=== PATIENT | male | born 1990 | race Two or more races ===

== ENCOUNTER 2021-10-29 03:48 | Emergency (ER) | payer MEDICAID, SELFPAY ==
[2021-10-29 04:34] VITALS: BP 115/73; PULSE 73; RESP 18; TEMP 36.7; O2SAT 98; BMI 28.2
[2021-10-29 05:01] LABS: MANUAL DIFF FLAG NO
[2021-10-29 05:03] LABS: Eosinophils Absolute Auto 0.2 X10*3/uL (0.0-0.4); Eosinophils Percent Auto 2.6 % (0-4); Hematocrit 47.1 % (42.0-52.0); Hemoglobin 16.6 g/dl (14.0-18.0); Imm Gran Abs Auto 0.02 X10*3/uL (0.00-0.03); Imm Gran Pct Auto 0.3 % (0.0-0.4); Lymphocytes Absolute Auto 2.1 X10*3/uL (1.2-4.9); Lymphocytes Percent Auto 36.1 % (20-40); Mean Corpuscular HGB Conc 35.2 g/dl (31.0-36.0); Mean Corpuscular Hemoglobin 29.1 pg (27.0-33.0); Mean Corpuscular Volume 82.6 fL (80.0-98.0); Mean Platelet Volume 9.8 fL (9.4-12.4); Monocytes Absolute Auto 0.6 X10*3/uL (0.1-1.2); Monocytes Percent Auto 9.7 % (2-11); Neutrophils Percent Auto 51.3 % (45-73); Platelet Count 242 X10*3/uL (160-400); Red Cell Distribution Width 11.8 % (11.0-16.0); White Blood Count 5.8 X10*3/uL (4.8-10.8)
[2021-10-29 05:17] LABS: COVID-19 Test Negative (Negative); IDNOW Serial# 9DD0AD1C
[2021-10-29 05:20] LABS: Alanine Aminotransferase 30 U/L (0-40); Albumin Level 4.7 g/dL (3.5-5.0); Alkaline Phosphatase 83 U/L (39-117); Anion Gap 13 (12-20); Aspartate Amino Transferase 18 U/L (5-37); Bilirubin Total 0.7 mg/dL (0.0-1.0); Blood Urea Nitrogen 18 mg/dL (9-16); Calcium 9.9 mg/dL (8.4-10.2); Carbon Dioxide 26 mmol/L (22-29); Chloride 104 mmol/L (96-108); Creatinine Clr Calc Pharmacy 106.1; Estimated Glomerular Filt Rate > 60; Glucose Random 97 mg/dL (60-115); Potassium 3.9 mmol/L (3.3-5.1); Sodium 139 mmol/L (135-145); Total Protein 7.9 g/dL (6.5-8.0)
[2021-10-29 05:27] LABS: Amphetamine Screen Urine Not Detected (Not Detect); Barbiturates, Urine Not Detected (Not Detect); Benzodiazepines Screen Urine Not Detected (Not Detect); Cannabinoid Screen Urine Not Detected (Not Detect); Cocaine Screen Urine Not Detected (Not Detect); Fentanyl, urine Not Detected (Not Detect); Opiate Screen Urine Not Detected (Not Detect); Phencyclidine Screen Urine Not Detected (Not Detect)
--- NOTE | 2021-10-29 07:34 | ED.GENADULT ---
HPI - General Adult General Chief complaint: General Medical Stated complaint: insomnia ? psychological Time Seen by Provider: 10/29/21 07:34 Source: patient Mode of arrival: ambulatory Limitations: no limitations History of Present Illness HPI narrative: 31 YO FROM [place] just release 2 Month ago from camp in [place] presented c/o imsomnia,he was given olanzepine,,citalopram,trazodone wich he stopped 2 weeks ago Onset (ago): day(s) Radiation: non-radiation Severity: moderate Quality: burning Pain Consistency: constant Relieving factors: none Exacerbating factors: none Related Data Allergies Allergy/AdvReac Type Severity Reaction Status Date / Time No Known Allergies Allergy Verified 10/29/21 04:32 Review of Systems Review of Systems: Yes all other systems are reviewed and are negative Eyes: Eyes: Reports as per HPI Cardiovascular: Cardiovascular: Reports no additional cardiovascular complaints, Denies painful fingertips, Denies chest pain and Denies chest pain at rest Respiratory: Respiratory: Reports no additional respiratory complaints Gastrointestinal: Gastrointestinal: Reports no additional gastrointestinal complaints Integumentary/Breasts: Skin/Breast: Reports system reviewed and no additional complaints, except as [facility]u [facility] Past Medical History Medical History Anxiety Depression Social History Social History Alcohol intake: never Patient Tobacco Use Status: Never used Tobacco Use of substances other than those prescribed or required for medical reasons: No Advance Directives: No Advance Directives Information Provided: No Physical Exam Vital Signs: Vital Signs: Last Vital Signs Temp 98.0 F 10/29/21 13:11 Pulse 70 10/29/21 13:11 Resp 17 10/29/21 13:11 BP 117/84 10/29/21 13:11 Pulse Ox 99 10/29/21 13:11 BMI result Body Mass Index 28.2 Const: General: cooperative Orientation/consciousness: patient oriented x3 HENMT: Head: Yes normal to inspection Face and sinus: Yes normal facial exam Mouth: Normal oral and palatal mucosa present Throat: Yes posterior oropharynx normal Neck: Neck: Yes normal visual inspection and Yes full ROM Chest: Chest palpation & inspection: normal inspection of the chest Resp: Effort & Inspection: normal respiratory effort Auscultation: clear to auscultation bilaterally Cardio: Jugular venous distension: no JVD Rhythm: regular rhythm GI: Inspection: Yes normal to inspection Palpation (GI): Soft to palpation Percussion: Yes normal to percussion Auscultation: normal bowel sounds : General: Yes no CVA tenderness Back/Spine/Pelvis: Back: no CVA tenderness Neuro: General: patient oriented x3 Course Reevaluation(s) Reevaluation #1: we use the straightener line patient basically has multiple somatic complaints which include the headache back pain he feels weak so we will check his routine blood work and will reassess after,will consult care team because he states that he is anxious and does not sleep at night Reevaluation #2: feeling better labs essentially normal waiting for care team eval Reevaluation #3: patient was seen in consultation by the care team and by the psychiatric Dr Wells, Dr Wells give him 1 dose of Suboxone for presumed opioid withdrawal (the orders were placed by Dr. Wells) . At this point I will discharge the patient he is hemodynamically stable his vital signs are stable, his labs are normal, he is no suicidal no homicidal. Most likely he has PTSD being a refugee from [facility], he has support in the community therefore I think the patient is dischargeable at this time. Medical Decision Making Lab Data Result diagrams: 10/29/21 04:38 10/29/21 04:38 Labs: Lab Results 10/29/21 10/29/21 10/29/21 Range/Units 04:38 04:38 04:38 WBC 5.8 (4.8-10.8) X10*3/uL RBC 5.70 (4.60-5.80) X10*6/uL Hgb 16.6 (14.0-18.0) g/dl Hct 47.1 (42.0-52.0) % MCV 82.6 (80.0-98.0) fL MCH 29.1 (27.0-33.0) pg MCHC 35.2 (31.0-36.0) g/dl RDW 11.8 (11.0-16.0) % Plt Count 242 (160-400) X10*3/uL MPV 9.8 (9.4-12.4) fL Immature Gran % (Auto) 0.3 (0.0-0.4) % Neut % (Auto) 51.3 (45-73) % Lymph % (Auto) 36.1 (20-40) % Butts % (Auto) 9.7 (2-11) % Eos % (Auto) 2.6 (0-4) % Baso % (Auto) 0.0 (0-2) % Lymph # (Auto) 2.1 (1.2-4.9) X10*3/uL Butts # (Auto) 0.6 (0.1-1.2) X10*3/uL Eos # (Auto) 0.2 (0.0-0.4) X10*3/uL Baso # (Auto) 0.0 (0.0-0.2) X10*3/uL Abs Immat Gran (auto) 0.02 (0.00-0.03) X10*3/uL Absolute Neuts (auto) 3.0 (2.0-8.3) x10*3/uL Absolute Nucleated RBC 0.000 (0.0-0.012) X10*3/uL Nucleated RBC % (auto) 0.0 (0.0-0.2) /100WBC Sodium 139 (135-145) mmol/L Potassium 3.9 (3.3-5.1) mmol/L Chloride 104 (96-108) mmol/L Carbon Dioxide 26 (22-29) mmol/L Anion Gap 13 (12-20) BUN 18 H (9-16) mg/dL Creatinine 0.98 (0.5-1.4) mg/dL Estim Creat Clear Calc 106.1 Estimated GFR > 60 Random Glucose 97 (60-115) mg/dL Calcium 9.9 (8.4-10.2) mg/dL Total Bilirubin 0.7 (0.0-1.0) mg/dL AST 18 (5-37) U/L ALT 30 (0-40) U/L Alkaline Phosphatase 83 (39-117) U/L Total Protein 7.9 (6.5-8.0) g/dL Albumin 4.7 (3.5-5.0) g/dL Urine Opiates Screen (Not Detect) Urine Fentanyl Screen (Not Detect) Ur Barbiturates Screen (Not Detect) Ur Phencyclidine Scrn (Not Detect) Ur Amphetamines Screen (Not Detect) U Benzodiazepines Scrn (Not Detect) Urine Cocaine Screen (Not Detect) U Marijuana (THC) Screen (Not Detect) COVID-19 ([facility]) Negative (Negative) COVID-19 Clin Com See Note 10/29/21 Range/Units 04:38 WBC (4.8-10.8) X10*3/uL RBC (4.60-5.80) X10*6/uL Hgb (14.0-18.0) g/dl Hct (42.0-52.0) % MCV (80.0-98.0) fL MCH (27.0-33.0) pg MCHC (31.0-36.0) g/dl RDW (11.0-16.0) % Plt Count (160-400) X10*3/uL MPV (9.4-12.4) fL Immature Gran % (Auto) (0.0-0.4) % Neut % (Auto) (45-73) % Lymph % (Auto) (20-40) % Butts % (Auto) (2-11) % Eos % (Auto) (0-4) % Baso % (Auto) (0-2) % Lymph # (Auto) (1.2-4.9) X10*3/uL Butts # (Auto) (0.1-1.2) X10*3/uL Eos # (Auto) (0.0-0.4) X10*3/uL Baso # (Auto) (0.0-0.2) X10*3/uL Abs Immat Gran (auto) (0.00-0.03) X10*3/uL Absolute Neuts (auto) (2.0-8.3) x10*3/uL Absolute Nucleated RBC (0.0-0.012) X10*3/uL Nucleated RBC % (auto) (0.0-0.2) /100WBC Sodium (135-145) mmol/L Potassium (3.3-5.1) mmol/L Chloride (96-108) mmol/L Carbon Dioxide (22-29) mmol/L Anion Gap (12-20) BUN (9-16) mg/dL Creatinine (0.5-1.4) mg/dL Estim Creat Clear Calc Estimated GFR Random Glucose (60-115) mg/dL Calcium (8.4-10.2) mg/dL Total Bilirubin (0.0-1.0) mg/dL AST (5-37) U/L ALT (0-40) U/L Alkaline Phosphatase (39-117) U/L Total Protein (6.5-8.0) g/dL Albumin (3.5-5.0) g/dL Urine Opiates Screen Not Detected (Not Detect) Urine Fentanyl Screen Not Detected (Not Detect) Ur Barbiturates Screen Not Detected (Not Detect) Ur Phencyclidine Scrn Not Detected (Not Detect) Ur Amphetamines Screen Not Detected (Not Detect) U Benzodiazepines Scrn Not Detected (Not Detect) Urine Cocaine Screen Not Detected (Not Detect) U Marijuana (THC) Screen Not Detected (Not Detect) COVID-19 ([facility]) (Negative) COVID-19 Clin Com Discharge Plan Discharge Clinical Impression: Weakness, Anxiety Patient Disposition: Home, Self-Care Instructions: Anxiety (ED) Additional Instructions: return if you worse, if fever, vomiting Take the trazodone 50 mg every night as need for sleep, do not take zyprexa toghter beacause could be too sedating Interventions: ED Discharge Assessment Last Done: 10/29/21 14:51
[2021-10-29 08:32] VITALS: BP 128/84; PULSE 77; RESP 15; TEMP 36.9; O2SAT 99
--- NOTE | 2021-10-29 09:15 | PC.NURSE ---
this rn spoke with pt using the [email or web address], remote ruby on rails developer whitney (#[id number]) with [facility] language.
[2021-10-29] MEDS: Ketorolac Tromethamine 30 MG/ML VIAL 15 MG IVPUSH (10:16)
[2021-10-29] MEDS: 0.9 % Sodium Chloride 1,000 ML 999 ML IVCONT (10:16)
[2021-10-29 10:58] VITALS: BP 106/64; PULSE 78; RESP 12; TEMP 36.6; O2SAT 99
[2021-10-29] MEDS: Buprenorphine/Naloxone 2/0.5mg FILM 1 FILM SUBLINGUAL (13:09)
[2021-10-29 13:11] VITALS: BP 117/84; PULSE 70; RESP 17; TEMP 36.7; O2SAT 99
--- NOTE | 2021-10-29 14:52 | MHC.CARE ---
Consult request initiated to support this patient who reported anxiety and physical symptoms after abruptly stopping medications that he was taking for several months. CARE Team and Dr. Wells spoke with patient in ED bed 16 with patient?s ed case manager (Wilbert [phone] from [facility]) used as lcpc via phone, MICAELA was unable to locate [facility] lcpc after multiple attempts. Patient maintained that he was given Zyprexa, Celexa and Trazadone prescribed by an MD while in [place] for four months and was also given two pills each day, did not know what they were and he did not leave with prescriptions like he did with the other three medications. Patient felt the three above medications were not helpful and he stopped taking them two weeks ago, ?When I started them, I was 10% ill and now I am 100% ill.? Believes that his symptoms of body aches, brain feeling, ?empty, without thoughts,? continued difficulty sleeping and causing increased distress.? According to patient he has not experienced psychiatric symptoms in the past and was seeking help for anxiety and insomnia, patient?s ed case manager stated he has not seen any other concerning symptoms and patient denied suicidal or homicidal ideation. It is possible that patient was given an opioid or another addictive medication and the abrupt discontinuation has caused withdrawal symptoms, here in the ED?he was given 2mg Suboxone and his symptoms did not improve so that type of withdrawal was ruled out. In addition, stopping an SSRI such as Celexa can cause withdrawal type symptoms though not usually for this long. Patient is medically cleared and not having a psychiatric crisis and the plan is to discharge to patient. He has an appointment on 11/05/21 with a new PCP and will discuss his symptoms. Patient was given instructions that he can take either Zyprexa or Suboxone, (half tablet or whole tablet) as a PRN. CARE Team will provide LYFT home.
--- NOTE | 2021-10-29 17:57 | PM.PSYCN ---
History of Present Illness Date of Service: 10/29/21 Chief Complaint: insomnia ? psychological Reason for Consult: medications review HPI Narrative: [place] refugee who has been at [place], [place], and was started on celexa 20 daily, zyprexa 5 at , and trazodone 50 at , plus a medication which he was given daily directly from staff there which was reportedly associated with addiction history. he has no h/o mental illness prior to coming to the [facility] and c/o insomnia and amnxiety in [place]. he states he stopped taking the medications 2 weeks ago and since then has been feeling terrible. he believes he is experiencing some kind of medication withdrawal syndrome and has no other mental health complaints today. he endorses, diarrhea, malaise, aches. no tremors or sweats. he denies opioid addiction and states he used cocaine a few times but not that much. he is advised that for sleep, trazodone at 25-50 mg nightly as needed is appropriate, zyprexa at 2.5-5 mg nightly as needed if trazodone is ineffective would be next. he was informed that citalopram is not effective as a sleep aid. he was willing to try a single dose of suboxone 2 mg to see if it relieved any of his withdrawal symptoms, which it did not. Past Psychiatric History: no h/o mental health treatment of any kind prior to the past 4 months in [place]. no SA, SIB. Personal & Social History: [place] refugee, evacuated in may,. has nspent the past 4 months in [place], [place], until being resettled here a couple of weeks ago. [facility] Medical History Anxiety Depression Substance History: reports h/o sporadic cocaine use Diagnostics Vital Signs (24Hr): Vital Signs - 24 hr 10/29/21 04:34 10/29/21 08:32 10/29/21 10:58 Temperature 98.1 F 98.4 F 97.8 F Pulse Rate 73 77 78 Respiratory Rate 18 15 12 Blood Pressure 115/73 128/84 106/64 Pulse Oximetry 98 99 99 10/29/21 13:11 Temperature 98.0 F Pulse Rate 70 Respiratory Rate 17 Blood Pressure 117/84 Pulse Oximetry 99 BMI result Body Mass Index 28.2 Labs Results: 10/29/21 04:38 10/29/21 04:38 Labs: Laboratory Results - last 48 hr 10/29/21 10/29/21 10/29/21 04:38 04:38 04:38 WBC 5.8 RBC 5.70 Hgb 16.6 Hct 47.1 MCV 82.6 MCH 29.1 MCHC 35.2 RDW 11.8 Plt Count 242 MPV 9.8 Immature Gran % (Auto) 0.3 Neut % (Auto) 51.3 Lymph % (Auto) 36.1 Douglas % (Auto) 9.7 Eos % (Auto) 2.6 Baso % (Auto) 0.0 Lymph # (Auto) 2.1 Douglas # (Auto) 0.6 Eos # (Auto) 0.2 Baso # (Auto) 0.0 Abs Immat Gran (auto) 0.02 Absolute Neuts (auto) 3.0 Absolute Nucleated RBC 0.000 Nucleated RBC % (auto) 0.0 Sodium 139 Potassium 3.9 Chloride 104 Carbon Dioxide 26 Anion Gap 13 BUN 18 H Creatinine 0.98 Estim Creat Clear Calc 106.1 Estimated GFR > 60 Random Glucose 97 Calcium 9.9 Total Bilirubin 0.7 AST 18 ALT 30 Alkaline Phosphatase 83 Total Protein 7.9 Albumin 4.7 Urine Opiates Screen Urine Fentanyl Screen Ur Barbiturates Screen Ur Phencyclidine Scrn Ur Amphetamines Screen U Benzodiazepines Scrn Urine Cocaine Screen U Marijuana (THC) Screen COVID-19 ([facility]) Negative COVID-19 Clin Com See Note 10/29/21 04:38 WBC RBC Hgb Hct MCV MCH MCHC RDW Plt Count MPV Immature Gran % (Auto) Neut % (Auto) Lymph % (Auto) Douglas % (Auto) Eos % (Auto) Baso % (Auto) Lymph # (Auto) Douglas # (Auto) Eos # (Auto) Baso # (Auto) Abs Immat Gran (auto) Absolute Neuts (auto) Absolute Nucleated RBC Nucleated RBC % (auto) Sodium Potassium Chloride Carbon Dioxide Anion Gap BUN Creatinine Estim Creat Clear Calc Estimated GFR Random Glucose Calcium Total Bilirubin AST ALT Alkaline Phosphatase Total Protein Albumin Urine Opiates Screen Not Detected Urine Fentanyl Screen Not Detected Ur Barbiturates Screen Not Detected Ur Phencyclidine Scrn Not Detected Ur Amphetamines Screen Not Detected U Benzodiazepines Scrn Not Detected Urine Cocaine Screen Not Detected U Marijuana (THC) Screen Not Detected COVID-19 ([facility]) COVID-19 Clin Com Mental Status Exam Mental Status Exam Narrative: appropriately dressed and groomed. cooperative with interview. speech nml rate, amount, loudness, latency. thoughts linear and logical, as far as could be ascertained with interpretation. affect constricted, normo-intense, non-labile. mood euthymic. no SI/HI/AVH expressed. Medications Allergies Allergies Allergy/AdvReac Type Severity Reaction Status Date / Time No Known Allergies Allergy Verified 10/29/21 04:32 Assessment & Plan Assessment & Plan (1) Anxiety: Status: Acute Code(s): F41.9 - Anxiety disorder, unspecified Assessment and Plan: adjustment disorder versus PTSD or other stress syndrome (2) Weakness: Status: Acute Code(s): R53.1 - Weakness Assessment and Plan: the medications he was recently prescribed would be very unlikely to cause a prolonged withdrawal syndrome. he was challenged with suboxone 2 mg and it had no effect on his Sx, so it does not appear he is physiologically dependent on opioids and in opioid withdrawal. VS WNL and stable. labs unremarkable. utox clean. would investigate other medical reasons for his complaints. Assessment and Plan: pt may take trazodone and/or zyprexa up to prescribed doses for sleep. having stopped taking these medications 2 weeks ago does not explain his current complaints. I spent minutes with the patient and/or on the patient floor today, greater than?50% of which was spent counseling/coordinating care.
== END 2021-10-29 15:17 | disposition home or self-care (01) ==
PROVIDERS: Emergency Provider Emergency Medicine
DX: F41.9 Anxiety disorder, unspecified (principal); G47.00 Insomnia, unspecified; R53.1 Weakness; Z20.822 Contact with and (suspected) exposure to COVID-19; Z79.899 Other long term (current) drug therapy
CPT/HCPCS: 80053; 80307; 85025; 87635; 96361; 96374; 99284; J1885

== ENCOUNTER 2021-11-03 13:12 | Emergency (ER) | payer MEDICAID, SELFPAY ==
--- NOTE | ~2021-11-03 | CT_ITS ---
EXAMINATION: CT HEAD WITHOUT CONTRAST CLINICAL INFORMATION: Confusion. COMPARISON: None TECHNIQUE: Contiguous axial imaging was performed from the skull base to vertex without intravenous administration of contrast. This CT examination was performed using dose optimization techniques as appropriate, variously including the following: *Automated exposure control *Adjustment of mA and/or kV according to patient size (this includes techniques or standardized protocols for targeted exams where dose is matched to indication/reason for exam; i.e. extremities or head) *Use of iterative reconstruction technique DLP: 674 mGy-cm FINDINGS: There is no evidence of acute intracranial hemorrhage or territorial infarction. No abnormal mass effect or midline shift is seen. Balderrama to white matter differentiation is well preserved. No extra-axial fluid collections are identified. The ventricles are normal in size. There is no abnormal attenuation within the brain parenchyma. The osseous structures and soft tissues are normal. The mastoid air cells and visualized portions of the paranasal sinuses are well aerated. CT/CT head/brain wo con IMPRESSION: No acute intracranial pathology.
--- NOTE | ~2021-11-03 | XR_ITS ---
EXAMINATION: XR CHEST CLINICAL INFORMATION: Weakness. COMPARISON: None TECHNIQUE: Frontal view of the chest was obtained. FINDINGS: Lung volumes are low. There is focal airspace opacification at the left lateral lung bases likely correspond to a confluence of overlying structures including the scapula, left seventh rib, and left heart margin. Superimposed consolidation is felt to be less likely. No pneumothorax or pleural effusion. Cardiac silhouette is within normal limits for technique. Pulmonary vasculature is normal. No acute osseous findings. XR/XR chest 1V IMPRESSION: Low lung volumes. Questionable opacity the left lung base is favored to represent a confluence of overlying structures. If there is high concern for pneumonia, consider correlation with CT.
[2021-11-03 13:29] VITALS: BP 139/83; PULSE 74; RESP 17; TEMP 37; O2SAT 99; BMI 25.5
[2021-11-03 15:54] LABS: MANUAL DIFF FLAG NO
[2021-11-03 15:57] LABS: Eosinophils Absolute Auto 0.2 X10*3/uL (0.0-0.4); Hematocrit 48.3 % (42.0-52.0); Hemoglobin 16.9 g/dl (14.0-18.0); Imm Gran Abs Auto 0.01 X10*3/uL (0.00-0.03); Imm Gran Pct Auto 0.2 % (0.0-0.4); Lymphocytes Absolute Auto 1.8 X10*3/uL (1.2-4.9); Lymphocytes Percent Auto 33.5 % (20-40); Mean Corpuscular Hemoglobin 28.8 pg (27.0-33.0); Mean Corpuscular Volume 82.4 fL (80.0-98.0); Mean Platelet Volume 9.4 fL (9.4-12.4); Monocytes Absolute Auto 0.4 X10*3/uL (0.1-1.2); Monocytes Percent Auto 6.6 % (2-11); Neutrophils Percent Auto 56.7 % (45-73); Platelet Count 222 X10*3/uL (160-400); Red Blood Count 5.86 X10*6/uL (4.60-5.80); Red Cell Distribution Width 11.6 % (11.0-16.0); White Blood Count 5.3 X10*3/uL (4.8-10.8)
[2021-11-03 16:10] LABS: Anion Gap 11 (12-20); Blood Urea Nitrogen 8 mg/dL (9-16); Calcium 9.9 mg/dL (8.4-10.2); Carbon Dioxide 29 mmol/L (22-29); Chloride 104 mmol/L (96-108); Creatinine Clr Calc Pharmacy 119.3; Estimated Glomerular Filt Rate > 60; Glucose Random 87 mg/dL (60-115); Potassium 4.5 mmol/L (3.3-5.1); Sodium 139 mmol/L (135-145)
--- NOTE | 2021-11-03 17:10 | ED_ITS ---
HPI - Psych General Chief Complaint: General Medical Stated Complaint: crisis Time Seen by Provider: 11/03/21 17:07 Source: patient, old records reviewed and physician's aide Mode of arrival: ambulatory Limitations: no limitations History of Present Illness HPI Narrative: my head isn't right. I can't sleep. complaint: anxiety and other (confused) Onset (ago): month(s) Duration: getting worse History of same: Yes Relieving factors: none Exacerbating factors: medication Context: other ([place] refugee - was placed on 3 medications while in [place] has not been on them in over 3 weeks states his mind isn't right now he can't sleep - my brain is empty ) Associated psychiatric symptoms: other (can't think, sleep) Associated symptoms: confusion and insomnia Treatments prior to arrival: other (seen by psychiatry on 10/29 tried low dose suboxone did not improve symptoms) Related Data Allergies Allergy/AdvReac Type Severity Reaction Status Date / Time No Known Allergies Allergy Verified 10/29/21 04:32 Review of Systems Review of Systems: Constitutional : No Fever, No Chills ENT/Mouth : No Ear Pain, No Nasal Congestion, No sore throat Eyes: No Eye Pain, No Swelling, No Redness Cardiovascular : No Chest Pain, No SOB Respiratory : No Cough, No Sputum, No Dyspnea Gastrointestinal : No Nausea, No Vomiting, No Diarrhea, No Hematochezia, No Melena Genitourinary : No Dysuria, No Urinary Frequency, No Hematuria Musculoskeletal : No Myalgias Skin : No Skin Lesions, No rash Neuro : No Weakness, No Numbness, No Paresthesias, No Dizziness, No Headache, pos confusion Psych : positive Anxiety, positive Depression, no SI/HI, pos insomnia Heme/Lymph: No Lymphadenopathy Endocrine : No Polyuria, No Polydipsia All other systems reviewed and are negative PMFSH Past Medical History Attestation statement: The following information was validated with the patient. Medical History Anxiety Depression Social History Social History (Updated 11/03/21 @ 17:48 by Martha Correia DO) Alcohol intake: never Patient Tobacco Use Status: Former Tobacco user Advance Directives: No Advance Directives Information Provided: No Physical Exam Vital Signs: Vital Signs: Last Vital Signs Temp 98.1 F 11/03/21 18:00 Pulse 75 11/03/21 18:00 Resp 18 11/03/21 18:00 BP 104/63 11/03/21 18:00 Pulse Ox 100 11/03/21 18:00 BMI result Body Mass Index 25.5 Appearance: Alert. Oriented X2. No acute distress. Eyes: Pupils equal, round and reactive to light. ENT: Pharynx normal. Neck: Normal inspection. Neck supple. CVS: Normal heart rate and rhythm. Pulses normal. Respiratory: No respiratory distress. Breath sounds normal. Abdomen: Soft and non-tender. Skin: Skin warm and dry. Normal skin color. Normal skin turgor. Extremities: No lower extremity edema. No calf ttp Neuro: Oriented X 2. No motor deficit. No sensory deficit. CN2-2 intact, no clonus, no hyperreflexia, appears anxious Course Course Course Narrative: medically cleared for CARE team at this time - CARE team wants to reavaluate in the AM Physician observation started at 922pm. Patient placed in physician observation because the patient needed more time for CARE team to repeat evaluation in the AM for collaterals At the time observation was started the patient's vitals were stable, patient is alert and oriented but anxious, Neuro: nonfocal, CV RRR, Lungs clear MDM - Psych MDM Narrative Medical decision making narrative: 31 yo male [place] refugee who was at refugee camp in [place] suffering from anxiety and insomnia he was placed on 3 medications that he feels has worsened his sleep, anxiety and now he feels his brain is empty. At this time he denies SI. He appears anxious. He denies substance abuse he admits to [facility] in [facility] but no street drugs - will obtain labs, CT head, CXR - discuss with psychiatry. Lab Data Result diagrams: 11/03/21 15:51 11/03/21 15:51 Labs: Lab Results 11/03/21 11/03/21 11/03/21 Range/Units 15:51 15:51 17:06 WBC 5.3 (4.8-10.8) X10*3/uL RBC 5.86 H (4.60-5.80) X10*6/uL Hgb 16.9 (14.0-18.0) g/dl Hct 48.3 (42.0-52.0) % MCV 82.4 (80.0-98.0) fL MCH 28.8 (27.0-33.0) pg MCHC 35.0 (31.0-36.0) g/dl RDW 11.6 (11.0-16.0) % Plt Count 222 (160-400) X10*3/uL MPV 9.4 (9.4-12.4) fL Immature Gran % (Auto) 0.2 (0.0-0.4) % Neut % (Auto) 56.7 (45-73) % Lymph % (Auto) 33.5 (20-40) % Blair % (Auto) 6.6 (2-11) % Eos % (Auto) 3.0 (0-4) % Baso % (Auto) 0.0 (0-2) % Lymph # (Auto) 1.8 (1.2-4.9) X10*3/uL Blair # (Auto) 0.4 (0.1-1.2) X10*3/uL Eos # (Auto) 0.2 (0.0-0.4) X10*3/uL Baso # (Auto) 0.0 (0.0-0.2) X10*3/uL Abs Immat Gran (auto) 0.01 (0.00-0.03) X10*3/uL Absolute Neuts (auto) 3.0 (2.0-8.3) x10*3/uL Absolute Nucleated RBC 0.000 (0.0-0.012) X10*3/uL Nucleated RBC % (auto) 0.0 (0.0-0.2) /100WBC Sodium 139 (135-145) mmol/L Potassium 4.5 (3.3-5.1) mmol/L Chloride 104 (96-108) mmol/L Carbon Dioxide 29 (22-29) mmol/L Anion Gap 11 L (12-20) BUN 8 L D (9-16) mg/dL Creatinine 0.88 (0.5-1.4) mg/dL Estim Creat Clear Calc 119.3 Estimated GFR > 60 Random Glucose 87 (60-115) mg/dL Calcium 9.9 (8.4-10.2) mg/dL Total Bilirubin 0.8 (0.0-1.0) mg/dL Direct Bilirubin 0.3 (0.0-0.5) mg/dL AST 24 (5-37) U/L ALT 31 (0-40) U/L Alkaline Phosphatase 87 (39-117) U/L Total Protein 7.9 (6.5-8.0) g/dL Albumin 4.6 (3.5-5.0) g/dL Lipase 86 H (8-78) U/L TSH 1.96 (0.32-4.0) uIU/mL COVID-19 ([facility]) Negative (Negative) COVID-19 Clin Com See Note Discharge Plan Discharge Clinical Impression: Anxiety Patient Disposition: Still a Patient
[2021-11-03 17:32] LABS: COVID-19 Test Negative (Negative); IDNOW Serial# 9DD0AD1C
[2021-11-03 17:54] LABS: Alanine Aminotransferase 31 U/L (0-40); Albumin Level 4.6 g/dL (3.5-5.0); Alkaline Phosphatase 87 U/L (39-117); Aspartate Amino Transferase 24 U/L (5-37); Bilirubin Direct 0.3 mg/dL (0.0-0.5); Bilirubin Total 0.8 mg/dL (0.0-1.0); Lipase 86 U/L (8-78); Total Protein 7.9 g/dL (6.5-8.0)
[2021-11-03 18:00] VITALS: BP 104/63; PULSE 75; RESP 18; TEMP 36.7; O2SAT 100
[2021-11-03 18:14] LABS: TSH reflex Free T4 1.96 uIU/mL (0.32-4.0)
--- NOTE | 2021-11-03 19:28 | PC.NURSE ---
patient a&o, vss, care team has been notified to come see patient, they are in process of calling the patients major case detective, will continue to monitor.
--- NOTE | 2021-11-03 21:13 | MHC.CARE ---
Pt presented to [facility] with similar concerns earlier this month and was seen by CARE Team and Dr. Wells at that time. Pt continues to report difficulty falling asleep, having a weak mind, loss of sex drive, and a dry brain. Pt denies thoughts of hurting himself and denies a history of psychiatric concerns. CARE Team attempted to contact pt's nurse case manager through [facility] several times with no success. At this time, CARE Team recommends that additional collateral information is needed to determine appropriate treatment recommendations at this time.
[2021-11-03 22:02] VITALS: BP 99/63; PULSE 67; RESP 17; O2SAT 98
[2021-11-03] MEDS: LORazepam 1 MG TABLET PO (22:04)
--- NOTE | 2021-11-03 23:00 | PC.NURSE ---
Assumed care of pt Pt eating at bedside NAD Will continue to monitor
[2021-11-03 23:01] LABS: Amphetamine Screen Urine Not Detected (Not Detect); Barbiturates, Urine Not Detected (Not Detect); Benzodiazepines Screen Urine Not Detected (Not Detect); Cannabinoid Screen Urine Not Detected (Not Detect); Cocaine Screen Urine Not Detected (Not Detect); Fentanyl, urine Not Detected (Not Detect); Opiate Screen Urine Not Detected (Not Detect); Phencyclidine Screen Urine Not Detected (Not Detect)
[2021-11-04 00:53] VITALS: BP 106/69; PULSE 88; RESP 16; O2SAT 99
--- NOTE | 2021-11-04 02:30 | PC.NURSE ---
Pt resting on stretcher with eyes closed Breathing even and unlabored NAD Will continue to monitor
[2021-11-04 06:21] VITALS: BP 107/70; PULSE 76; RESP 17; O2SAT 98
[2021-11-04 07:00] VITALS: BP 110/63; PULSE 80; RESP 14; TEMP 36.6; O2SAT 96
--- NOTE | 2021-11-04 11:08 | PC.NURSE ---
pt has been asleep since this rn arrival at 7am.
--- NOTE | 2021-11-04 14:50 | PC.NURSE ---
Pt is dressing and will await LYFT in waiting room. Pt has strong steady gait. no concerns or complaints at this time. noni Kingsley, on speaker phone for interpreting help. Wilbert nurse case manager for home care has coordinated PCP visit for tomorrow.
[2021-11-04 14:56] VITALS: BP 112/60; PULSE 82; RESP 14; TEMP 36.4; O2SAT 96
--- NOTE | 2021-11-04 15:00 | MHC.CARE ---
[place] unavailable for [place] speaking patient CARE Team responded to consult request to speak with this patient who came to the ED yesterday with complaint of insomnia and headaches which are the same symptoms that brought him here last week. Today patient described having had pain, pressure and the sensation that his, ?head is getting smaller.? Call to case finisher, Wilbert (from [facility] an agency that offers comprehensive services and relocation support for [place] refugees) who confirmed that patient reported same symptoms and his cousins said that he was crying and screaming from the pain the night before coming to the hospital. Via phone patient?s cousin, Duarte, was able to help CARE Team communicate with patient. Currently patient denied having a headache and said that great last night and feels good; he was given 1mg of Ativan last night. Patient does not appear to be having a psychiatric crisis; has no confusion, depression, suicidal or homicidal thoughts no hallucinations or evidence of psychosis. Had a thorough medical work up without finding any issues. A likely conclusion would be that patient was taking a benzodiazepine daily for four months and had to stop taking abruptly and is still in withdrawal symptoms resolved after taking Ativan. Plan is to discharge patient to home with 6 day supply of Ativan to manage symptoms, he should be engaged with a psychiatric provider who can either prescribe or titrate down. Patient again was encouraged to take Olanzapine (which he already has) ? or whole tablet for sleep as needed. He has an appointment to meet new PCP tomorrow, details unknown. Regina Quiles RN and Val Awad MD and transmission maintenance supervisor Regina Emerson [facility] consulted. Patient stated an understanding of the discharge plans and his family and case finisher were updated as well. CARE Team arranged L[facility] home.
== END 2021-11-04 15:00 | disposition home or self-care (01) ==
PROVIDERS: Emergency Provider Emergency Medicine
DX: F41.9 Anxiety disorder, unspecified (principal); G47.00 Insomnia, unspecified; R41.0 Disorientation, unspecified; F32.A Depression, unspecified; Z20.822 Contact with and (suspected) exposure to COVID-19
CPT/HCPCS: 36415; 70450; 71045; 80048; 80076; 80307; 83690; 84443; 85025; 87635; 99284; 99285